=== PATIENT | male | born 1960 | race Caucasian/White ===

== ENCOUNTER 2022-08-10 07:30 | Day surgery (SDC) | payer OTHER ==
--- NOTE | 2022-08-09 13:50 | RAD REPORT ---
EXAM DESCRIPTION: Sushil Thorpe And Marizol (2 Views)08/09/2022 1:43 pm CLINICAL HISTORY: Preop for cardiac catheterization. Coronary arterial disease COMPARISON: None FINDINGS: Interstitial pattern is prominent within the lungs bilaterally Heart is normal size IMPRESSION: Interstitial pattern is prominent within the lungs bilaterally. I suspect that most if n ot all of this is chronic and may represent pulmonary fibrosis. Further evaluation with unenhanced CT chest may be helpful
[2022-08-09 13:57] LABS: SARS-CoV-2 Antigen Rapid Res Negative (Negative)
[2022-08-09 13:59] LABS: Hematocrit 47.8 % (39.6-49.0); Lymphocytes % 23.1 % (15.3-44.8); MCV 98.6 fL (80-100); MPV 8.4 fL (7.6-11.3); RBC Red Blood Cell Count 4.84 M/uL (4.33-5.43)
[2022-08-09 14:04] LABS: Protime INR 1.07
[2022-08-09 14:07] LABS: Potassium 4.1 mmol/L (3.5-5.1)
[~2022-08-10 07:30] MED LIST: NA CHLORIDE 0.9% 500 ML ONE
[2022-08-10] MEDS ORDERED: MIDAZOLAM HCL 2 MG/2 ML INJ ONE (08:11)
[2022-08-10] MEDS ORDERED: HEPA 1000U/500MLS 1,000 UNIT/500 ML BAG IV ONE (08:11)
[2022-08-10] MEDS ORDERED: FENTANYL CITR 100 MCG/2 ML ONE (08:11)
[2022-08-10] MEDS ORDERED: ATROPINE SULF 1 MG/10 ML SYR IV ONE (08:12)
[2022-08-10] MEDS ORDERED: NA CHLORIDE 0.9% 0 ML IV ONE (08:12)
[2022-08-10] MEDS ORDERED: LIDOCAINE 1% MPF 30 ML VIAL ONE (08:13)
--- NOTE | 2022-08-10 08:29 | EKG ---
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
[2022-08-10 10:43] VITALS: BP 145/75; O2SAT 99
--- NOTE | 2022-08-10 20:12 | OP ---
Date of Procedure: 08/10/2022 Surgeon: Eamon Roman MD He underwent left heart catheterization, selective coronary arteriogram, common femoral artery angiog esther. Indication: Atypical chest pain, CAD, and abnormal stress test. 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 Thompson was prepped and draped in routine sterile fashion . Given Versed and fentanyl for sedation. A 6-Upper Sorbian sheath introduced in the right common femoral artery successfully using Seldinger technique and 10 cc of xylocaine. Angiography there was normal. Angio-Seal was used to close the case. Nighat catheter left and righ t were used to cannulate the left main and right main respectively. The RCA was normal, very large, tortuous, but dominant and free of disease. The left main was normal. LAD had about a 40% to 50% mi d LAD stenosis, right at the septal and diagonal takeoff. The circumflex itself had about 40% to 50% stenosis proximally. There was a 50% small OM1 stenosis. There was a patent stent in the distal ci rc. Before the stent, there was another 40% to 50% stenosis. The patient tolerated the procedure we ll. There were no complications. Blood Loss: 5 mL. Postoperative Diagnoses: Moderate coronary artery disease, patent circumflex stent, 40% to 50% steno sis in the left anterior descending, obtuse marginal, proximal and distal circumflex. Plan: To continue medical therapy. I will double his statin from 40 mg to 80 mg daily. He will go home today after 2 hours of bedrest. I will see him in the office in 2 weeks. TAYLOR/LONDON Voice ID: [id number] Report ID: [id number]
== END 2022-08-10 10:54 | disposition home or self-care (01) ==
LOC: CCL 07:30
DX: I25.10 Atherosclerotic heart disease of native coronary artery without angina pectoris (principal); I10 Essential (primary) hypertension; E78.00 Pure hypercholesterolemia, unspecified; Z95.5 Presence of coronary angioplasty implant and graft; Z87.891 Personal history of nicotine dependence; Z79.899 Other long term (current) drug therapy; Z20.822 Contact with and (suspected) exposure to COVID-19; Z82.49 Family history of ischemic heart disease and other diseases of the circulatory system
CPT/HCPCS: 93005 ×2; 85025; 80048; 36415; 85610; 85730; 71046; 93454; 87811; C1893; C1760; Q9967; G0269; J2250; J3010; J7040; J1644; J0583

== ENCOUNTER → 2023-12-19 | Emergency (ER) | payer OTHER ==
--- NOTE | 2023-12-19 16:59 | RAD REPORT ---
EXAM DESCRIPTION: RAD - Knee Left 3 View - 12/19/2023 4:20 pm CLINICAL HISTORY: PAIN COMPARISON: No comparisons TECHNIQUE: Left knee, 3 views. FINDINGS: No fracture, dislocation or periosteal reaction.Mild joint effusion. Anterior soft tissue swelling with focal thickening anterior and superior to the patella, may be along or anterior to the quadriceps tendon. Enthesopathy at the quadriceps tendon attachment. No joint space narrowing. No sof t tissue abnormality. IMPRESSION: No acute osseous abnormality. Soft tissue abnormalities as above, which may include a he matoma along the distal quadriceps tendon.
--- NOTE | 2023-12-19 17:59 | EDPHYS ---
Physician Documentation [facility] Name: Conor Thompson Age: 63 yrs Sex: Male : 1960 Arrival Date: 12/19/2023 Time: 15:33 Bed DIS2 Private MD: ED Physician Errol Deluna HPI: 12/19 18:35 This 63 yrs old Male presents to ER via Ambulatory with complaints of Knee Pain - Left, kb Fall Injury - on 12/08/23. 18:35 Patient is a 63-year-old male who presents for left knee pain that started about 2 kb hours ago. States he was walking and felt some tightness in the left knee and then started having more intense pain. States pain is worse with movement but resolves if still. Historical: - Allergies: 15:59 No Known Allergies; ko1 - PMHx: 15:59 Myocardial infarction; ko1 - PSHx: 15:59 Stented artery; ko1 - Immunization history:: Adult Immunizations up to date. - Social history:: Smoking status: Patient denies any tobacco usage or history of. ROS: 18:34 Constitutional: Negative for fever, chills, and weight loss, kb 18:34 MS/extremity: Positive for pain, of the left knee, 18:34 All other systems are negative, Exam: 18:34 Constitutional: This is a well developed, well nourished patient who is awake, alert, kb and in no acute distress. Head/Face: Normocephalic, atraumatic. ENT: Moist Mucous membranes Cardiovascular: Regular rate Respiratory: Respirations even and unlabored. No increased work of breathing. Talking in full sentences Abdomen/GI: Soft, non-tender. No distention Skin: Warm, dry with normal turgor. Normal color. Neuro: Awake and alert, GCS 15, oriented to person, place, time, and situation. Moves all extremities. Normal gait. 18:34 Musculoskeletal/extremity: Extremities: grossly normal except: noted in the left knee: decreased ROM, pain, ROM: limited active range of motion due to pain, Circulation is intact in all extremities. Sensation intact. Weight bearing: able to fully bear weight, Vital Signs: 15:54 BP 126 / 86; Pulse 76; Resp 18; Temp 97.2; Pulse Ox 100% ; ko1 MDM: 15:40 Patient medically screened. kb 18:34 Differential diagnosis: contusion, fracture, sprain, strain. Data reviewed: vital kb signs, nurses notes. Counseling: I had a detailed discussion with the patient and/or guardian regarding the historical points, exam findings, and any diagnostic results supporting the discharge/admit diagnosis, radiology results, the need for outpatient follow up, a orthopedic surgeon, to return to the emergency department if symptoms worsen or persist or if there are any questions or concerns that arise at home. 12/19 15:54 Order name: Knee Left 3 View XRAY; Complete Time: 17:11 kb Administered Medications: No medications were administered Disposition: 12/20 10:25 I was immediately available on-site in the Emergency Department for consultation in the ms3 care of the patient.. Disposition Summary: 12/19/23 17:58 Discharge Ordered Notes: Location: Home kb Condition: Stable kb Diagnosis - Pain in left knee kb Followup: kb - With: Emergency Department - When: As needed - Reason: Worsening of condition Followup: kb - With: Private Physician - When: 2 - 3 days - Reason: Recheck today's complaints, Continuance of care, Re-evaluation by your physician Discharge Instructions: - Discharge Summary Sheet kb - Musculoskeletal Pain kb Forms: - Medication Reconciliation Form kb - Thank You Letter kb - Antibiotic Education kb - Prescription Opioid Use kb - Patient Portal Instructions kb - Leadership Thank You Letter kb Signatures: Dispatcher [employer] EDConstanza Liu, ОЛЕГ-C BIOFUELS MANAGER-Errol Menard DO DO ms3 Ivana Babcock, RN RN ko1 Corrections: (The following items were deleted from the chart) 12/19 16:00 15:59 PMHx: Coronary atherosclerosis; ko1 ko1
--- NOTE | 2023-12-19 17:59 | ER ---
Nurse's Notes [facility] Name: Conor Thompson Age: 63 yrs Sex: Male : 1960 Arrival Date: 12/19/2023 Time: 15:33 Bed DIS2 Private MD: Diagnosis: Pain in left knee Presentation: 12/19 15:54 Chief complaint: Patient states: fell a couple of weeks ago, left knee had some ko1 scratches on it but now the knee is swollen and hurts. Coronavirus screen: At this time, the client does not indicate any symptoms associated with coronavirus-19. Ebola Screen: No symptoms or risks identified at this time. Initial Sepsis Screen: Does the patient meet any 2 criteria? No. Patient's initial sepsis screen is negative. Does the patient have a suspected source of infection? No. Patient's initial sepsis screen is negative. Risk Assessment: Do you want to hurt yourself or someone else? Patient reports no desire to harm self or others. Onset of symptoms is unknown. 15:54 Method Of Arrival: Ambulatory ko1 15:54 Acuity: SHELBI 3 ko1 Triage Assessment: 15:59 General: Appears in no apparent distress. uncomfortable, Behavior is calm, cooperative, ko1 appropriate for age. Pain: Complains of pain in left knee. Historical: - Allergies: 15:59 No Known Allergies; ko1 - PMHx: 15:59 Myocardial infarction; ko1 - PSHx: 15:59 Stented artery; ko1 - Immunization history:: Adult Immunizations up to date. - Social history:: Smoking status: Patient denies any tobacco usage or history of. Screenin:11 [facility] ED Fall Risk Assessment (Adult) History of falling in the last 3 months, ap3 including since admission No falls in past 3 months (0 pts). Abuse screen: Denies threats or abuse. Nutritional screening: No deficits noted. Tuberculosis screening: No symptoms or risk factors identified. Vital Signs: 15:54 BP 126 / 86; Pulse 76; Resp 18; Temp 97.2; Pulse Ox 100% ; ko1 ED Course: 15:36 Patient arrived in ED. im 15:40 Constanza Israel FNP-C is PHCP. kb 15:40 Errol Deluna DO is Attending Physician. kb 15:59 Triage completed. ko1 15:59 Arm band placed on right wrist. Patient placed in waiting room, Patient notified of ko1 wait time. 16:22 Knee Left 3 View XRAY In Process Unspecified. EDMS 18:11 Patient has correct armband on for positive identification. Provided Education on: ap3 discharge instructions. 18:11 No provider procedures requiring assistance completed. Patient did not have IV access ap3 during this emergency room visit. Administered Medications: No medications were administered Medication: 18:11 VIS not applicable for this client. ap3 Outcome: 17:58 Discharge ordered by . kb 18:11 Discharged to home ambulatory, ap3 18:11 Condition: good 18:11 Discharge instructions given to patient, Instructed on discharge instructions, follow up and referral plans. Demonstrated understanding of instructions, follow-up care, 18:12 Patient left the ED. ap3 Signatures: Dispatcher [employer] EDMS Constanza Israel FNP-C FNP-Ckb Prokisch, Amanda RN RN ap3 Ivana Babcock RN RN ko1 Annamaria Martinez Corrections: (The following items were deleted from the chart) 16:00 15:59 PMHx: Coronary atherosclerosis; ko1 ko1
== END ==
LOC: ER 15:33
DX: M25.562 Pain in left knee (principal)